=== PATIENT | male | born 1945 | race Caucasian/White ===

== ENCOUNTER 2022-09-16 15:28 | Emergency (ER) | payer OTHER, SELFPAY ==
[2022-09-16 15:45] VITALS: BP 160/71; PULSE 41; RESP 16; TEMP 36.4; O2SAT 96; BMI 22.2
--- NOTE | 2022-09-16 16:00 | ECG_ITS ---
[facility] Test Date: 2022-09-16 Pat Name: Rodrigo Martin Department: Room: Gender: Male [employer] Detailer: : 1945 Requested By: Mayito Navarro Order Number: [id number] Melgar MD: Rina Dahl M.D. Measurements Intervals [place] Rate: 41 P: 0 ND: 0 QRS: -24 QRSD: 94 T: 87 QT: 526 QTc: 435 Interpretive Statements ATRIAL FIBRILLATION WITH SLOW VENTRICULAR RESPONSE BORDERLINE LEFT AXIS DEVIATION [QRS AXIS < -20] MODERATE ST DEPRESSION [0.05+ mV ST DEPRESSION] PROLONGED QT INTERVAL No previous ECG available for comparison Electronically Signed On 09-17-2022 11:04:39 CDT by Rina Dahl M.D. [id number]
--- NOTE | 2022-09-16 16:13 | W.ED.GENADLT ---
HPI - General Adult General: Chief complaint: General Medical Stated complaint: low hr, [facility] Time Seen by Provider: 09/16/22 16:02 History of Present Illness: Patient presents to the ER today [facility] Told him his heart rate is low and to come to the ER to be checked out. Patient says he feels fine and denies any chest pain shortness of breath nausea vomiting etc. Patient does have A-fib which he is on Xarelto for. Patient has no complaints at this time. Upon arrival to the ER patient's heart rate was 41 bpm and blood pressure 160/71. Review of Systems General: Reports: 10 or more systems reviewed and unremarkable except in HPI and below Physical Exam Const: COMMON NORMALS: no acute distress, average body habitus, patient oriented x3, no limitations, healthy appearing, alert and well nourished HENMT: COMMON NORMALS: normocephalic, hearing grossly normal bilaterally, external ears normal, Normal external nose present and moist oral mucous membranes HEAD & SCALP: normocephalic NOSE: Normal external nose present EXTERNAL EAR: Yes external ears normal Eye: COMMON NORMALS: Equal, round and reactive pupils present, EOMs intact bilaterally, conjunctivae normal and no scleral icterus CONJUNCTIVA: Yes conjunctivae normal PUPIL: Yes Equal, round and reactive pupils present Neck/C-Spine: COMMON NORMALS: full ROM, no lymphadenopathy, supple, no meningeal signs, no JVD and Thyroid normal THYROID: Thyroid normal Lymph: LYMPHATIC: no lymphadenopathy noted Chest: COMMONS NORMALS: normal inspection of the chest and normal palpation of entire chest wall Resp: COMMON NORMALS: normal respiratory effort, No retractions, No use of accessory muscles and clear to auscultation bilaterally AUSCULTATION: clear to auscultation bilaterally Cardio: COMMON NORMALS: no JVD, S1 normal heart sound present and S2 normal heart sound present; negative for regular rate (Atrial fibrillation with slow ventricular response) RATE: abnormal rate (Atrial fibrillation with slow ventricular response) HEART SOUNDS: S1 normal heart sound present and S2 normal heart sound present GI: COMMON NORMALS: Normal to inspection, nondistended, normoactive bowel sounds present, Soft to palpation, non-tender, No hepatosplenomegaly present and no masses PALPATION: Yes Soft to palpation and Yes No hepatosplenomegaly present : COMMON NORMALS: Yes no CVA tenderness BLADDER/KIDNEY EXAM: Yes no CVA tenderness Back/Pelvis: COMMON NORMALS: no CVA tenderness Neuro: COMMON NORMALS: patient oriented x3 SENSORIUM/ORIENTATION: Yes alert MENINGEAL SIGNS: Yes no meningeal signs Course Vital Signs: Vital signs: Vital Signs Temperature 97.5 F L 09/16/22 15:45 Pulse Rate 41 L 09/16/22 15:45 Respiratory Rate 16 09/16/22 15:45 Blood Pressure 160/71 09/16/22 15:45 Pulse Oximetry 96 09/16/22 15:45 Oxygen Delivery Me thod Room Air 09/16/22 15:45 MDM - General Adult Medical Decision Making Patient [facility] with a low heart rate. Patient does have atrial fibrillation. EKG showed atrial fibrillation with slow ventricular response. Patient is asymptomatic with his heart rate in the 40s. The patient is not on any beta-blockers. Patient be discharged from the ER to follow [facility] on an as-needed basis. Differential Diagnosis A-fib with slow ventricular response, sinus bradycardia, Medical Records I reviewed the patient's medical records. Lab Data I reviewed the patient's lab results. EKG Data EKG 1: I personally reviewed and interpreted this EKG as follows: EKG interpretation date: 09/16/22 EKG interpretation time: 16:07 Prior EKG tracings: not available for review Interpretation: EKG showed a ventricular rate of 41 bpm, QRS duration 94, QTc of 461, atrial fibrillation with slow ventricular response, borderline left axis deviation, moderate ST depression, prolonged QT interval. Discharge Plan Discharge Patient Disposition: Home Clinical Impression: Atrial fibrillation with slow ventricular response Condition: Stable Prescriptions: No Action Aspir-81 81 mg Tablet,Delayed Release (Dr/Ec) 81 mg PO BEDTIME Xarelto 20 mg Tablet 20 mg PO BEDTIME Rx Instructions: must administer with evening meal Celexa 40 mg Tablet 40 mg PO BEDTIME losartan 100 mg Tablet 100 mg PO BEDTIME Prilosec OTC 20 mg Tablet,Delayed Release (Dr/Ec) 20 mg PO BEDTIME Discharge Orders: Discharge ED (Routine); Ordered 09/16/22 Ordered By: Mayito Navarro Referrals: [facility] [Primary Care Provider] - 1 week Patient Instructions: Atrial Fibrillation Activity Restrictions/Additional Instructions: [facility] or later as needed. Please feel free to return to the ER if you become symptomatic. Coding Level of Care Code ED Waste Minimization Technician for Malik Chang
== END 2022-09-16 17:12 | disposition home or self-care (01) ==
PROVIDERS: Emergency Provider Emergency Medicine
DX: I48.91 Unspecified atrial fibrillation (principal); Z79.82 Long term (current) use of aspirin
CPT/HCPCS: 93005; 99283

== ENCOUNTER → 2023-01-11 17:37 | Outpatient (BNVA) | payer MEDICARE, SELFPAY | PROVIDERS: PCP Nurse Practitioner Family; Visit Provider Nurse Practitioner Family | DX: I10 Essential (primary) hypertension (principal) | CPT/HCPCS: 80053; 80061; 82607; 83735; 84443; 85025 ==